=== PATIENT | male | born 1960 | race African-American/Black ===

== ENCOUNTER 2017-05-08 08:08 | Emergency (ER) | payer MEDICAID ==
[~2017-05-08] VITALS: Ht 190.5 cm; Wt 79.8 kg
[2017-05-08 08:22] VITALS: BP 146/101
[2017-05-08] MEDS ORDERED: ONDANSETRON HCL 4 MG/2 ML VIAL IM ONE (08:45)
[2017-05-08] MEDS ORDERED: HYDROmorphone HCL 2 MG/ML VL IM ONE (08:45)
[2017-05-08] MEDS ORDERED: METHOCARBAMOL 500 MG TAB PO ONE (08:45)
== END 2017-05-08 09:58 | disposition home or self-care (01) ==
LOC: ER 08:08
DX: M54.32 Sciatica, left side (principal); K21.9 Gastro-esophageal reflux disease without esophagitis; E78.5 Hyperlipidemia, unspecified; Z88.0 Allergy status to penicillin
CPT/HCPCS: 72131; 74176; 96372; 99284; J1170; J2405

== ENCOUNTER 2018-12-05 19:41 | Emergency (ER) | payer MEDICAID ==
[~2018-12-05] VITALS: Ht 190.5 cm; Wt 74.8 kg
[2018-12-05 19:58] VITALS: BP 161/86
== END 2018-12-05 21:57 | disposition left against medical advice (07) ==
LOC: EDUNIT# 19:41 → EDBD 19:41 → ER 19:43
DX: R56.9 Unspecified convulsions (principal); Z53.21 Procedure and treatment not carried out due to patient leaving prior to being seen by health care provider

== ENCOUNTER 2021-06-09 23:48 | Emergency (ER) | payer MEDICAID ==
[~2021-06-09] VITALS: Ht 180.3 cm; Wt 81.6 kg
[2021-06-10 00:17] VITALS: BP 176/100
[2021-06-10 01:29] LABS: Albumin 3.1 g/dL (3.4-5.0); Potassium 3.6 mmol/L (3.5-5.1)
[2021-06-10 01:33] LABS: Basophils # (auto) 0.2 10 ^3/uL (0-0.2); Basophils % (auto) 2.5 % (0.0-2.0); Eosinophils # (auto) 0.1 10 ^3/uL (0-0.8); Eosinophils % (auto) 1.7 % (0.0-7.0); Hematocrit 41.8 % (41.0-53.0); Hemoglobin 14.1 g/dL (13.5-17.5); Mean Corpuscular Hemoglobin 30.2 pg (28.0-32.0); Mean Corpuscular Hgb Conc. 33.7 g/dL (32.0-36.0); Mean Corpuscular Volume 89.6 fL (80.0-100.0); Monocytes % (auto) 14.1 % (0.0-12.0); Neutrophils # (auto) 5.1 10 ^3/uL (1.6-8.6); Neutrophils % (auto) 68.7 % (37.0-80.0); Red Blood Cells 4.66 10^6/uL (4.5-5.90); Red Cell Distribution Width 14.3 % (11.8-14.3); White Blood Cell 7.4 10^3/uL (4.4-10.8)
[2021-06-10 01:35] LABS: BUN/Creatinine Ratio 18.2; Bilirubin, Total 0.5 mg/dL (0.2-1.0); Total Protein 8.7 g/dL (6.4-8.2)
[2021-06-10] MEDS ORDERED: levETIRAcetam 500 MG/5ML INJ IV ONE (01:58)
[2021-06-10] MEDS ORDERED: KETOROLAC TROMETH 30 MG/ML 1ML VIAL IV ONE (02:15)
[2021-06-10] MEDS ORDERED: HYDROcodone-ACET 5/325MG TAB PO ONE (02:15)
== END 2021-06-10 06:07 | disposition home or self-care (01) ==
LOC: EDBD 23:48 → ER 23:48
DX: R56.9 Unspecified convulsions (principal); K21.9 Gastro-esophageal reflux disease without esophagitis; E78.5 Hyperlipidemia, unspecified; Z88.0 Allergy status to penicillin
CPT/HCPCS: 36415; 70450; 71045; 72125; 80053; 80185; 84484; 85025; 93005; 96374; 96375; 99285; J1885; J7060

== ENCOUNTER → 2022-10-23 13:18 | Emergency (ER) | payer MEDICAID | END | disposition left against medical advice (07) | LOC: ER 13:18 | DX: Z00.00 Encounter for general adult medical examination without abnormal findings (principal); Z53.21 Procedure and treatment not carried out due to patient leaving prior to being seen by health care provider ==